=== PATIENT | female | born 1965 | race African-American/Black ===

== ENCOUNTER 2025-01-28 13:16 | Emergency (ER) | payer OTHER ==
[~2025-01-28] VITALS: Ht 162.6 cm; Wt 59.0 kg
[2025-01-28 13:19] VITALS: O2SAT 98
[2025-01-28] MEDS ORDERED: ONDANSETRON HCL 4MG/2ML INJ IV ONE (14:45)
[2025-01-28] MEDS ORDERED: MORPHINE SULFATE 4 MG/ML INJ (FOR IV/IM USE) IV ONE (14:45)
[2025-01-28 14:51] LABS: BASOPHILS % 0.3 % (0.0-2.0); EOSINOPHILS % 0.1 % (0.0-5.0); HEMATOCRIT. 51.0 % (36.0-48.0); HEMOGLOBIN. 17.1 g/dL (12.0-16.0); LYMPHOCYTES % 12.6 % (20.0-50.0); MEAN PLATELET VOLUME 8.6 fl (7.4-10.4); MONOCYTES % 4.6 % (2.0-8.0); NEUTROPHILS % 82.4 % (40.0-76.0); PLATELET 299 x1000/uL (130-400); RED BLOOD CELL COUNT 5.56 mill/uL (4.2-5.4); RED CELL DISTRIBUTION WIDTH 14.6 % (11.6-14.6)
[2025-01-28 15:06] LABS: CREATININE 1.1 mg/dL (0.6-1.0); UREA NITROGEN BLOOD 14 mg/dL (9-23)
[2025-01-28 15:07] LABS: ASPARTATE AMINOTRANSFERASE 23 IU/L (<34)
[2025-01-28 15:08] LABS: BILIRUBIN DIRECT 0.2 mg/dL (<=3.0); BILIRUBIN TOTAL 0.7 mg/dL (0.1-1.0); INR 1.2; PROTEIN TOTAL 7.9 g/dL (6.0-8.3)
[2025-01-28] MEDS: ONDANSETRON HCL 4MG/2ML INJ IV SCH (16:48)
[2025-01-28] MEDS: MORPHINE SULFATE 4 MG/ML INJ (FOR IV/IM USE) IV SCH (16:48)
[2025-01-28] MEDS: SODIUM CHLORIDE 0.9% 1,000 ML IV ONE (16:49)
[2025-01-28] MEDS ORDERED: ACET-2708 MT (17:04)
[2025-01-28 18:17] VITALS: BP 106/60; PULSE 84; RESP 18; TEMP 36.7; O2SAT 98
== END 2025-01-28 18:30 | disposition home or self-care (01) ==
LOC: ER 13:16
DX: K42.9 Umbilical hernia without obstruction or gangrene (principal); R19.00 Intra-abdominal and pelvic swelling, mass and lump, unspecified site; I10 Essential (primary) hypertension; Z98.890 Other specified postprocedural states; Z90.5 Acquired absence of kidney
CPT/HCPCS: 80076; 80048; 83690; 85025; 85610; 85730; 36415; 74176; 96360; 99284; J7030; Z7610; J2270; J2405